=== PATIENT | female | born 1960 | race Caucasian/White ===

== ENCOUNTER 2024-09-20 06:05 | Observation (INO) ==
[~2024-09-20 06:05] MED LIST: Bupivacaine 0.5% SDV PF 30ML VIAL ONE; HYDROmorphone 1 MG/1 ML SYRINGE IV PRN; Naloxone 0.4 mg VIAL 0.4 mg/ml 1 ml VIAL IV PRN; Ondansetron 4 mg VIAL 2 MG/ML 2 ml VIAL IV PRN; fentaNYL 100 mcg/2 ml 50 MCG/ML VIAL IV PRN
[2024-09-20] MEDS: Buffered Lidocaine 1% SYRIN 1 ml INTRADERM ONE (06:38)
[2024-09-20] MEDS ORDERED: Scopolamine 1 mg/72hr PATCH ONE (06:43)
[2024-09-20] MEDS ORDERED: Heparin 5000 UNITS/ML 1 mL VIAL ONE ×2 (06:43→14:59)
[2024-09-20] MEDS ORDERED: ceFAZolin 2 GM PREMIX 2 GM/50 ML BAG ONE (06:43)
[2024-09-20 06:51] LABS: Rapid COVID-19 Molecular Undetected (Undetected)
[2024-09-20] MEDS ORDERED: Propofol 10 MG/ML 20 ML BTL ONE (06:53)
[2024-09-20] MEDS ORDERED: Ondansetron 4 mg VIAL 2 MG/ML 2 ml VIAL ONE (06:53)
[2024-09-20] MEDS ORDERED: Dexamethasone IV 4 MG/ML VIAL 1 ml VIAL ONE (06:53)
[2024-09-20] MEDS ORDERED: Lidocaine 2% PF 5 ML VIAL ONE (06:54)
[2024-09-20] MEDS ORDERED: Midazolam 2 mg/2 ml VIAL 1 mg/ml 2 ml VIAL (2 mg) ONE (06:57)
[2024-09-20] MEDS ORDERED: ISOSULFAN BLUE 1% 5 ML VIAL 10 MG/ML SUBCUT ONE (06:58)
[2024-09-20] MEDS ORDERED: fentaNYL 100 mcg/2 ml 50 MCG/ML VIAL ONE (06:58)
[2024-09-20] MEDS ORDERED: KETAMINE HCL 10 MG/ML 20 ml VIAL (200 MG) ONE (06:58)
[2024-09-20] MEDS ORDERED: Rocuronium 50 mg VIAL 10 mg/ml 5 ml VIAL (50 mg) ONE (07:00)
[2024-09-20] MEDS: Lactated Ringers 1000 ml BAG 1,000 ML IV SCH (07:12)
[2024-09-20] MEDS: Scopolamine 1 mg/72hr PATCH TRANSDERM ONE (07:12)
[2024-09-20] MEDS ORDERED: HYDROmorphone 0.5 MG/0.5 ML SYRINGE ONE ×2 (11:10)
[2024-09-20] MEDS ORDERED: ceFAZolin VIAL VIAL ONE ×2 (11:22)
[2024-09-20] MEDS ORDERED: Benzocaine/Menthol LOZ PO PRN (12:00)
[2024-09-20] MEDS ORDERED: Morphine 2 MG/ML SYRINGE IV PRN (12:03)
[2024-09-20] MEDS ORDERED: HYDROcodone/ACETAMIN 5/325 mg TAB PO PRN ×2 (12:03)
[2024-09-20] MEDS: Heparin 5000 UNITS/ML 1 mL VIAL SUBCUT SCH (15:00)
[2024-09-20] MEDS ORDERED: ceFAZolin 2 GM in NS PREMIX 2 GM/100 ML BAG IVPB SCH (16:00)
[2024-09-20] MEDS: ceFAZolin VIAL 2 GM in NS 0.9% 100 ml BAG 100 ML IVPB SCH (16:43)
[2024-09-20] MEDS: Acetaminophen IV 1 GM/100ML 1,000 MG/100 ML BAG IV ONE (17:16)
[2024-09-20] MEDS: ceFAZolin 2 GM PREMIX 2 GM/50 ML BAG IV SCH (17:41)
== END 2024-09-21 13:50 | disposition home or self-care (01) ==
LOC: OR 06:05 → SSU 11:56 → INTOOBSV 11:56
PROVIDERS: ADMIT Student in an Organized Health Care Education/Training Program; ATTEND Student in an Organized Health Care Education/Training Program